=== PATIENT | female | born 1975 | race Caucasian/White ===

== ENCOUNTER 2023-04-07 13:18 | Outpatient (CLI) | payer OTHER, SELFPAY | END 2023-04-07 13:19 | disposition home or self-care (01) | PROVIDERS: PCP Emergency Medicine; Visit Provider Emergency Medicine | DX: Z00.00 Encounter for general adult medical examination without abnormal findings (principal); Z13.6 Encounter for screening for cardiovascular disorders; Z13.1 Encounter for screening for diabetes mellitus | CPT/HCPCS: 80061; 82947 ==

== ENCOUNTER 2023-08-01 14:33 | Outpatient (CLI) | payer OTHER, SELFPAY ==
--- NOTE | 2023-08-01 14:40 | MM_ITS ---
Patient: REAGAN SMITH Facility:?[facility] Patient ID:?[id number] Site Patient ID:?[id number]. Site :?[id number] Study:?XRay-Breast Bilateral 3D W/CAD-08/01/2023 3:37:39 PM Ordering Physician:Lisa Final Report: BILATERAL SCREENING MAMMOGRAM WITH COMPUTER-AIDED DETECTION AND TOMOSYNTHESIS TECHNIQUE: CC and MLO views were obtained. These mammographic images have been obtained using full-field digital technique. These mammographic images were interpreted with the benefit of computer-aided detection. Breast Tomosynthesis was used in this interpretation. COMPARISON FILM: 09/22/21, 09/01/18, 08/05/15. FINDINGS: The breasts are heterogeneously dense, which may obscure small masses. IMPRESSION: There is no radiographic evidence for malignancy. ASSESSMENT: BI-RADS Category 1: Negative RECOMMENDATION: Routine screening mammogram in 1 year. A lay language report of this examination will be provided to the patient. Issa John M.D. Diagnostic Radiologist [email or web address] DSM/sp R& Transcribed: 4:43 p.m. SP/Dictated by: Issa John MD @ 08/02/2023 8:40:00 AM Signed by:?Issa John MD @08/03/2023 5:28:00 AM (Electronic Signature)
== END 2023-08-01 14:34 | disposition home or self-care (01) ==
LOC: MAMMO 14:33
PROVIDERS: PCP Emergency Medicine; Visit Provider Emergency Medicine
DX: Z12.31 Encounter for screening mammogram for malignant neoplasm of breast (principal); R92.2 Inconclusive mammogram
CPT/HCPCS: 77063; 77067

== ENCOUNTER 2024-08-10 08:33 | Outpatient (CLI) | payer OTHER, SELFPAY | END 2024-08-10 08:34 | disposition home or self-care (01) | LOC: MAMMO 08:33 | PROVIDERS: PCP Emergency Medicine; Visit Provider Emergency Medicine | DX: Z12.31 Encounter for screening mammogram for malignant neoplasm of breast (principal); R92.333 Mammographic heterogeneous density, bilateral breasts | CPT/HCPCS: 77063; 77067 ==